=== PATIENT | female | born 1940 | race Two or more races ===

== ENCOUNTER 2017-02-18 11:30 | Emergency (ER) | payer MEDICAID ==
[2017-02-18 11:39] VITALS: TEMP 98.2
--- NOTE | 2017-02-18 12:44 | CPEKG ---
Heart Rate: 70 RR Interval: 857 P-R Interval: 172 QRSD Interval: 86 QT Interval: 424 QTC Interval: 458 P [place]: 20 QRS [place]: 73 T Wave [place]: 14 EKG Severity - NORMAL ECG - EKG Impression: SINUS RHYTHM Electronically Signed By: Randi Dela Cruz 18-Feb-2017 17:39:08
--- NOTE | 2017-02-18 13:28 | EDPHY ---
HPI/HX/ROS/PE/MDM Narrative: CHIEF COMPLAINT: Dizziness HISTORY OF PRESENT ILLNESS: This patient is a Armenian-speaking 76 year old female with history of diabetes and hypertension complaining of dizziness onset yesterday and worsening this morning upon waking. She had a headache at onset of her symptoms. She endorses a spinning sensation, and vomited twice. She was unable to get up from bed. Her symptoms are worse with standing and she is worried she will fall due to dizziness. Three months ago, she had a similar episode while in [place], which resolved on its own. She endorses mild shortness of breath and back pain. No fever, chills, chest pain, palpitations, diarrhea. Of note, the patient tripped and fell one month ago, striking her abdomen on the ground. She has had difficulty urinating since then, and has noted a small lump in her abdomen with associated pain. She is concerned she may have injured her hernia repair. HPI obtained primarily through account service associate at bedside. REVIEW OF SYSTEMS: Aside from elements discussed in the HPI, a comprehensive 10-point review of systems was reviewed and is negative. PAST MEDICAL HISTORY: Diabetes, hypertension, hyperlipidemia. History of TBI. SOCIAL HISTORY: Originally from [place]. Daughter at bedside. VITAL SIGNS: Reviewed by me GENERAL: Patient becomes very dizzy when she sits up. Elderly, pleasant, well developed, well nourished, resting comfortably in no respiratory distress. HEENT: Atraumatic. Eyes: No icterus, no injection. EOMI, PERRL, No nystagmus on exam. Mouth: moist mucous membranes. No erythema or lesions. Neck: supple with no adenopathy. LUNGS: Clear to auscultation bilaterally, no wheezes, rhonchi or rales. CARDIAC: Regular rate and rhythm, no rubs, murmurs or gallops. ABDOMEN: 2-3cm firm palpable fullness to right of umbilicus, tender to palpation. Soft, nondistended, bowel sounds normal. BACK: No CVA tenderness. No midline spinal tenderness. EXTREMITIES: No trauma. No edema. Range of motion is normal throughout. NEURO: Alert and oriented, CN 2-12 intact. Normal motor and sensation. Normal finger to nose and heel to de anda. SKIN: Warm and dry, no rash. PSYCHIATRIC: Normal mentation, no agitation. Portions of this note were transcribed by a medical typist. I personally performed a history, physical exam, medical decision making, and confirmed accuracy of information the transcribed note. ED Course: 76 year old female presents with two day history of dizziness. The patient becomes quite dizzy when she sits up. Physical exam also reveals a 2-3cm firm palpable fullness to right of umbilicus, tender to palpation. IV established. Plan for labs including CBC, BMP, Troponin, UA. Plan for EKG. Plan for CT head, CT abdomen/pelvis. 15:[address] Fischer, radiologist. CT head negative for acute processes. CT abd/pelvis with no hemorrhage, bowel or solid organ injury, no bladder injury. Bulge present in mesh from hernia repair with no disruption of mesh noted or herniation of bowel or abd contents thru mesh. EKG NSR, labs reassuring, troponin neg. Urinalysis concerning for possible infection. Will start keflex pending culture results. Much improved post meclizine. Ambulatory to bathroom without difficulty. Will dc with family. All are comfortable with plan MDM: Diff dx considered included vertigo, arrythmias, tia, cva, electrolyte abnormalities, intracranial pathology, sinusitis, URI, dehydration, infectious cause. - Data Points Imaging Results: CTHead: Impression: Normal. Report telephoned to Dr. Dela Cruz at 1505 hours. Dictated By : Christos Fischer MD CT Abd/Pelvis: Impression: 1. Previous abdominal mesh surgery for hernia, in 2011. 2. Mild bulge of contour of the mesh to the right of umbilicus, with no herniated bowel contents. 3. Diverticulosis of the colon. 4. Cholecystectomy. Dictated By: Christos Fischer MD Imaging: Discussed imaging studies w/ heel brusher Radiologist, I viewed and interpreted images myself Laboratory Results: Laboratory Results 02/18/17 12:55 02/18/17 12:55 General Time Seen by Provider: 02/18/17 13:15 Initial Vital Signs: Initial Vital Signs Temperature (C) 36.8 C 02/18/17 11:32 Heart Rate 82 02/18/17 11:32 Respiratory Rate 15 02/18/17 11:32 Blood Pressure 138/81 H 02/18/17 11:32 O2 Sat (%) 94 02/18/17 11:32 O2 Delivery Mode Room Air Allergies/Adverse Reactions: No Known Allergies Allergy (Unverified 08/22/11 22:48) Home Medications: Medication Instructions Recorded Atorvastatin Calcium [Lipitor 20 20 mg PO DAILY 08/22/11 mg (RX)] Donepezil HCl [Aricept 5 MG (RX)] 10 mg PO HS 08/22/11 Levothyroxine [Synthroid 137 mcg 137 mcg PO DAILY06 08/22/11 (RX)] Lisinopril [Zestril 10 mg (RX)] 10 mg PO DAILY 08/22/11 Metformin HCl [Metformin HCl 1000 1,000 mg PO BID 08/22/11 mg] Pharmacy Completed 09/08/11 09/08/11 glipiZIDE XL [Glucotrol Xl] 10 mg PO BID 09/08/11 Cephalexin [Keflex (RX)] 500 mg PO TID 5 Days cap 02/18/17 Meclizine HCl [Meclizine HCl 25 mg 25 mg PO BID PRN #30 tab 02/18/17 (RX,OTC)] Departure - Departure Disposition: Home, Routine, Self-Care Clinical Impression: Dizzinesses, Possible urinary tract infection, Vertigo Condition: Good Instructions: Vertigo (ED), Dizziness (ED), Urinary Traction Infection in Older Adults (ED) Additional Instructions: You have been given a prescription for meclizine. Please take this as directed. 25 mg by mouth 2 times a day when needed to help treat your dizziness. Te hemos dado paris receta para Meclizine. Por favor tomarlo henry directado. 25 mg por la boca dos veces por olivia cuando sea necesario para tratar el mareo. Please drink plenty of fluid. Por favor sandra bastante liquidos. Please follow up with the primary care physician at [facility]. They need to recheck to see how you're doing from your dizziness. They can also recheck your abdominal pain. Por favor ir a andrew de seguimiento con gurrola de [facility] primario en [facility]. Ellos necesitan revisarte aver henry sigues de tus mareos. Tambien pueden revisarte del dolor abdominal. Please begin taking Keflex as directed. 500 mg by mouth 3 times a day to treat an infection. Por favor empezar a sandra Keflex henry directado. 500 mg por la boca 3 veces por olivia para tratar paris infeccion. Referrals: [facility] [Other] - As per Instructions Prescriptions: Cephalexin [Keflex (RX)] 500 mg PO TID 5 Days cap Meclizine HCl [Meclizine HCl 25 mg (RX,OTC)] 25 mg PO BID PRN #30 tab PRN Reason: Dizziness Print Language: Armenian Report Scribed for: Randi Dela Cruz Report Scribed by: Chuyita Mathis Date of Report: 02/18/17 Time of Report: 14:18
[2017-02-18 13:38] LABS: % IMMATURE GRANULYOCYTES 0.2 % (0.0-1.1); ABSOLUTE IMMATURE GRANULOCYTES 0.01 10^3/uL (0.00-0.10); ADD DIFF? NO; ADD MORPH? NO; ADD SCAN? NO; ATYPICAL LYMPHOCYTE FLAG 0 (0-99); FRAGMENT RBC FLAG 0 (0-99); HEMATOCRIT 37.5 % (38.0-47.0); HEMOGLOBIN 12.8 g/dL (12.6-16.3); LEFT SHIFT FLG 0 (0-99); LIPEMIA HEMOLYSIS FLAG 90 (0-99); MEAN CELL HEMOGLOBIN 32.4 pg (27.9-34.1); MEAN CELL HEMOGLOBIN CONCENTR. 34.1 g/dL (32.4-36.7); MEAN CELL VOLUME 94.9 fL (81.5-99.8); MEAN PLATELET VOLUME 11.4 fL (8.7-11.7); PLATELET CLUMPS FLAG 0 (0-99); PLATELET COUNT 232 10^3/uL (150-400); RED BLOOD CELL COUNT 3.95 10^6/uL (4.18-5.33); RED CELL DISTRIBUTION WIDTH 12.8 % (11.5-15.2)
[2017-02-18 13:42] LABS: COLOR YELLOW; LEUKOCYTE ESTERASE,URINE 1+ (NEGATIVE); NITRITE,URINE NEGATIVE (NEGATIVE)
[2017-02-18 13:43] LABS: BACTERIA TRACE /hpf (NONE SEEN); MUCUS 3+ /lpf (NONE-1+); RBC,URINE 15-25 /hpf (0-3); WBC,URINE 15-25 /hpf (0-3)
[2017-02-18 13:45] LABS: ANION GAP 10 mEq/L (8-16); CARBON DIOXIDE 26 mEq/l (22-31); CHLORIDE 105 mEq/L (97-110); CREATININE 0.7 mg/dL (0.6-1.0); GLOMERULAR FILTRATION RATE > 60; GLUCOSE 175 mg/dL (70-100); POTASSIUM 3.6 mEq/L (3.5-5.2); SODIUM 141 mEq/L (134-144)
[2017-02-18 14:02] LABS: TROPONIN I < 0.012 ng/mL (0.000-0.034)
[2017-02-18] MEDS ORDERED: IOPAMIDOL (ISOVUE-300) 100 ML BTL ONE (14:04)
[2017-02-18 16:21] VITALS: BP 167/83; PULSE 79; RESP 18; O2SAT 96
== END 2017-02-18 16:22 | disposition home or self-care (01) ==
DX: R42 Dizziness and giddiness (principal); E11.9 Type 2 diabetes mellitus without complications; I10 Essential (primary) hypertension; Z79.84 Long term (current) use of oral hypoglycemic drugs
CPT/HCPCS: Q9967